=== PATIENT | female | born 1960 | race Caucasian/White ===

== ENCOUNTER 2016-12-30 04:15 | Inpatient (IN) | payer MEDICAID ==
[2016-12-30 05:12] VITALS: BP 110/58
[2016-12-30] MEDS ORDERED: Maalox 30 mL Cup PO PRN (06:31)
[2016-12-30] MEDS ORDERED: Magnesium Hydroxide (MOM) 30 mL UDC PO PRN (06:31)
[2016-12-30] MEDS ORDERED: Hydrocodone/APAP 10 mg/325 mg Tab PO PRN (06:31)
[2016-12-30] MEDS ORDERED: cefTRIAXone 1 GM in Sodium Chloride 0.9% 50 ML IV SCH (06:45)
[2016-12-30 08:01] LABS: HEMOGLOBIN 11.7 gm/dL (11.7-15.5); MEAN CELL VOLUME 89.3 fl (81-100); MEAN CORPUSCULAR HEMOGLOBIN 30.8 pg (27.0-31.0); MEAN CORPUSCULAR HGB CONC 34.5 pg (28.0-36.0); MEAN PLATELET VOLUME 7.9 fl; PLATELET COUNT 293 Th/cmm (150-400); RED BLOOD COUNT 3.81 Mil/cmm (3.80-5.10); RED CELL DISTRIBUTION WIDTH 12.2 % (11.5-20.0); WHITE BLOOD COUNT 5.9 Th/cmm (4.8-10.8)
[2016-12-30 08:25] LABS: ALB/GLOB RATIO 1.3 (1.0-1.8); ALKALINE PHOSPHATASE 51 U/L (34-104); ANION GAP 7.8 (7.0-16.0); BILIRUBIN,TOTAL 0.4 mg/dL (0.3-1.0); BUN - UREA NITROGEN 11 mg/dL (7-25); BUN/CREATININE RATIO 18.3; CALCIUM SERUM 9.1 mg/dL (8.6-10.3); CARBON DIOXIDE 29.3 mEq/L (21.0-31.0); CHLORIDE 104 mEq/L (98-107); CREATININE - SERUM 0.6 mg/dL (0.6-1.2); GLUCOSE 94 mg/dL (70-105); POTASSIUM SERUM 4.1 mEq/L (3.5-5.1); SGOT 14 U/L (13-39); SGPT/ALT 13 U/L (7-52); SODIUM SERUM 137 mEq/L (136-145)
[2016-12-30 09:09] LABS: EOSINOPHIL 2 % (0-5); NEUTROPHILS 47 % (40-80); PLATELET ESTIMATE ADEQUATE (NORMAL); TOTAL CELLS COUNTED 100
[2016-12-30] MEDS: Hydrocodone/APAP 5mg/325mg Tab PO PRN (10:22)
[2016-12-30] MEDS: cefTRIAXone 1 GM in 0.9% NS 50 ML IV SCH (11:32)
[2016-12-30] MEDS: Morphine Sulfate 4 mg/mL 1mL Syr IVP PRN (20:14)
--- NOTE | 2016-12-30 23:18 | History & Physical ---
HISTORY OF PRESENT ILLNESS: The patient was transferred from [facility]. The patient, in the ER, complained of dizziness. The patient is 56-year- old female who presents complaining of pain in the right arm for 1 day. The patient has chest pain and shortness of breath. The patient has an old compression fracture of the T-spine. The patient denies IV drug use. PAST MEDICAL HISTORY: Psychotic disorder. PAST SURGICAL HISTORY: . ALLERGIES: IV CONTRAST. MEDICATIONS: Benadryl. SOCIAL HISTORY: The patient denies alcohol or tobacco use. REVIEW OF SYSTEMS: See history of present illness. PHYSICAL EXAMINATION: GENERAL: The patient is awake, alert, nontoxic in appearance. VITAL SIGNS ON ADMISSION: Blood pressure in the ER was 124/76, pulse 109, temperature 98.5, respiratory rate 16, and O2 sat 96% on room air. HEENT: Normocephalic and atraumatic. Extraocular movements intact. NECK: Supple. No thyromegaly. No lymphadenopathy. RESPIRATORY: Clear. No rales or rhonchi. CARDIOVASCULAR: S1 and S2. GASTROINTESTINAL: Soft. +BS GENITOURINARY: No CVA tenderness. BACK: No tenderness. EXTREMITIES: Equal pulses bilaterally. SKIN: Tenderness in the right upper extremity. Positive erythema. NEUROLOGIC: Cranial nerves intact. sensation intact. EKG performed at [facility] which shows normal sinus rhythm. LABORATORY DATA: Labs on admission: Hematology: WBC 5.9, hemoglobin 8.7, hematocrit per labs, and platelet count of 293, 19% monocytes. Chemistry: Sodium 137, potassium 4.1, chloride 104, bicarbonate 7.8, BUN 11, creatinine 0.6, GFR is more than 60, glucose 94, calcium 9.1, total bilirubin 0.4, AST is 1413, alk phos 51, total protein 6.3, albumin 3.6, and globulin 2.7. IMPRESSION: 1. Right upper extremity cellulitis. 2. Hypoalbuminemia. 3. Psychotic disorder. 4. History of section. PLAN: The patient will be admitted to med-surg unit. We will obtain lab. Further recommendations per consult. JOB# [id number] [facility]
[2016-12-31] MEDS: Morphine Sulfate 2 mg/mL 1mL Syr IVP PRN ×2 (01:10→05:45)
--- NOTE | 2016-12-31 01:30 | Admit Criteria Form ---
Admit Criteria Forms - Admit Criteria Diagnosis: CELLULITIS Clinical Indications for Admission to Inpatient Care (Place 'X' for any and all applicable criteria): Admission is indicated for ANY ONE of the following(1)(2)(3)(4)(5): [ ]I. Limb-threatening infection [ ]II. High-risk comorbid condition as indicated by ANY ONE of the following: [ ]a) Uncontrolled diabetes (eg, HbA1c greater than 10% (0.1)) [ ]b) Cirrhosis [ ]c) Neutropenia [ ]d) Asplenia [ ]e) Immunosuppression [ ]f) Symptomatic heart failure [ ]III. Failure of outpatient therapy as indicated by ALL of the following: [ ]a) Progression or no improvement after adequate trial (minimum of 48 hours, with longer period for stable lower extremity infection) [ ]b) Adequate antibiotic regimen as indicated by use of ANY ONE of the following: [ ]i) First-generation cephalosporin (e.g., cephalexin) [ ]ii) Antistaphylococcal penicillin (e.g., dicloxacillin) [ ]iii) Penicillin-allergic patient regimen (clindamycin, extended-spectrum fluoroquinolone, or doxycycline) [ ]iv) Resistant organism (eg, methicillin-resistant Staphylococcus aureus) regimen (6) [ ]c) Outpatient intravenous therapy regimen is not appropriate due to ANY ONE of the following. (7)(8)(9)(10): [ ]i) It was tried and was not successful (eg, progression of infection). [ ]ii) It is not available or cannot be arranged in a clinically appropriate time frame (e.g., the next day). [ ]iii) Clinical presentation (eg, acuity of infection, rapidity of progression, confirmed or suspected bacteremia) is judged to require ALL of the following: [ ]1) Immediate initiation of intravenous therapy ( eg, cannot wait for next day) [ ]2) Intensity of patient monitoring and observation (eg, vital sign measurement, checks for infection progression) that cannot be provided at other than inpatient level of care [ ]IV. Mental status changes [ ]V. Bacteremia [ ]. Hemodynamic instability [ ]VII. Suspected necrotizing soft tissue infection (e.g., gas in tissue)(11)( 12) [ ]VIII. Orbital infection (13)(14) [ ]IX. Associated surgical procedure (e.g., abscess drainage, debridement) not amenable to outpatient, emergency department, or observation care [ ]X. Cutaneous gangrene [ ]XI. High fever (temperature greater than 39.5 degrees C (103.1 degrees F) (oral)) not responsive to outpatient, emergency department, or observation care therapy [X]XIII. Inpatient admission required rather than observation care (Also use Cellulitis: Observation Care as appropriate) because of ANY ONE of the following : [ ]a) Periorbital or perineal infection that is severe or worsening [X]b) Severe pain requiring acute inpatient management [ ]c) IV fluid to replace significant ongoing (e.g., for over 24 hours) losses (greater than 3L/m2 per day) [ ]d) Compartment syndrome monitoring (17) [ ]e) Strict or protective (eg, laminar flow) isolation [ ]f) Urgent debridement or skin grafting [ ]g) Bone or joint debridement [ ]h) Immediate inpatient surgery [ ]i) Other condition, treatment or monitoring requiring inpatient admission Extended stay beyond goal length of stay may be needed for (1)(18): [ ]a) Necrotizing soft tissue infection or fasciitis [ ]b) Gram-negative infection [ ]c) Methicillin-resistant Staphylococcal aureus (MRSA) infection [ ]d) Peripheral venous insufficiency with cellulitis [ ]e) Extensive edema [ ]f) Sepsis or continued Hemodynamic instability [ ]g) Continued high fever or mental status change [ ]h) Bacteremia [ ]i) Active serious comorbid conditions ( eg, heart failure, renal insufficiency) The original [email or web address] [email or web address] content created by [facility] [employer] has been revised. The portions of the content which have been revised are identified through the use of italic text or in bold, and [facility] has neither reviewed nor approved the modified material. All other unmodified content is copyright [facility] Please see references footnoted in the original [facility] edition 2016 Admit Criteria Met?: Yes
[2016-12-31 06:23] LABS: % BASOPHILS 0.5 % (0.0-2.0); % EOSINOPHILS 3.2 % (0.0-5.0); % MONOCYTES 10.8 % (2.0-10.0); % NEUTROPHILS 43.5 % (40.0-80.0); HEMATOCRIT 33.2 % (35.0-45.0); HEMOGLOBIN 11.5 gm/dL (11.7-15.5); MEAN CELL VOLUME 88.9 fl (81-100); MEAN CORPUSCULAR HEMOGLOBIN 30.8 pg (27.0-31.0); MEAN CORPUSCULAR HGB CONC 34.6 pg (28.0-36.0); MEAN PLATELET VOLUME 7.8 fl; NEUTROPHILE ABSOLUTE 2.6 Th/cmm (1.8-8.0); PLATELET COUNT 329 Th/cmm (150-400); RED BLOOD COUNT 3.73 Mil/cmm (3.80-5.10); RED CELL DISTRIBUTION WIDTH 12.3 % (11.5-20.0); WHITE BLOOD COUNT 5.8 Th/cmm (4.8-10.8)
[2016-12-31 06:33] LABS: BUN - UREA NITROGEN 12 mg/dL (7-25); CALCIUM SERUM 9.1 mg/dL (8.6-10.3); CHLORIDE 104 mEq/L (98-107); CREATININE - SERUM 0.6 mg/dL (0.6-1.2); GLUCOSE 97 mg/dL (70-105); SODIUM SERUM 137 mEq/L (136-145)
[2016-12-31] MEDS: Morphine Sulfate 4 mg/mL 1mL Syr IVP PRN ×5 (10:00→22:42)
[2016-12-31] MEDS: cefTRIAXone 1 GM in 0.9% NS 50 ML IV SCH (11:08)
--- NOTE | 2016-12-31 14:30 | Diagnostic Imaging Report ---
Carotid ultrasound HISTORY: Syncope COMPARISON: None Technique: Longitudinal and transverse sonographic sector images of the carotid arteries were obtained with doppler analysis. FINDINGS: Exam of the right side demonstrates intimal thickening and mild generalized atherosclerotic vascular disease. Exam of the left side demonstrates intimal thickening and mild generalized atherosclerotic vascular disease. The velocity and velocity ratios are within normal limits. Antegrade bilateral vertebral artery flow is demonstrated. IMPRESSION: Mild atherosclerotic vascular disease. No evidence of hemodynamically significant significant stenosis.
--- NOTE | 2016-12-31 22:18 | Consultation ---
PRIMARY CARE PHYSICIAN: Dr. Adams. This is a 56-year-old female who was brought to the Emergency with complaint of cellulitis of the right forearm. HISTORY OF PRESENT ILLNESS: The patient was at ER at [facility] and was found to have cellulitis, right arm. The patient was started on antibiotics, transferred to [facility]. Infectious consultation was called. The patient's past medical history, the patient states the patient was at some other hospital where IV was inserted in the right forearm, got infected and she developed large rash with pain and swelling suggestive of cellulitis and phlebitis. The patient was started on home medication. PAST MEDICAL HISTORY: Osteoporosis, syncope, fall, depression. FAMILY HISTORY: Brain tumor and hypertension present. PAST SURGICAL HISTORY: , cholecystectomy. SOCIAL HISTORY: The patient is an active smoker. REVIEW OF SYSTEMS: A 14-point review of systems negative except above. ALLERGIES: THE PATIENT IS ALLERGIC TO PAXIL, BENADRYL. PHYSICAL EXAMINATION: GENERAL: The patient is alert, awake, responsive. VITAL SIGNS: Temperature is 97.9, pulse 71, respirations 19, blood pressure 95/60. HEENT: Mild pallor, no icterus. Pupil reactive. NECK: Supple. LUNGS: Breath sounds bilateral vesicular. CARDIOVASCULAR: S1, S2. ABDOMEN: Soft, right forearm cellulitis present. LYMPHATIC: No thyromegaly, no cervical lymph nodes. DIAGNOSES: 1. Right forearm cellulitis. 2. Family history of hypertension, depression, syncope, fall, osteoporosis with fracture, thoracic spine. PLAN: The patient was started on Rocephin, repeat labs tomorrow. Supportive care, pain control, restart home medications, psych evaluation. Thank you, Dr. Adams, for this consultation. JOB# [id number]
[2017-01-01] MEDS: Morphine Sulfate 4 mg/mL 1mL Syr IVP PRN ×5 (03:05→22:29)
[2017-01-01] MEDS: cefTRIAXone 1 GM in 0.9% NS 50 ML IV SCH (12:29)
[2017-01-01 17:38] LABS: URINE BILIRUBIN NEGATIVE (NEGATIVE); URINE BLOOD NEGATIVE (NEGATIVE); URINE COLOR YELLOW; URINE GLUCOSE (UA) NEGATIVE (NEGATIVE); URINE KETONE NEGATIVE (NEGATIVE); URINE PROTEIN NEGATIVE (NEGATIVE); URINE UROBILINOGEN 0.2 E.U./dL (0.2 - 1.0)
[2017-01-01 17:39] LABS: URINE BACTERIA NONE SEEN /hpf (NONE SEEN); URINE EPITHELIAL CELLS NONE SEEN /lpf (FEW); URINE RBC NONE SEEN /hpf (0-5); URINE WBC NONE SEEN /hpf (0-5)
[2017-01-01] MEDS: Hydrocodone/APAP 5mg/325mg Tab PO PRN (20:32)
[2017-01-02] MEDS: Morphine Sulfate 2 mg/mL 1mL Syr IVP PRN ×5 (03:12→22:43)
[2017-01-02 08:00] LABS: % BASOPHILS 0.7 % (0.0-2.0); % EOSINOPHILS 2.5 % (0.0-5.0); % LYMPHOCYTES 40.7 % (20.0-50.0); % MONOCYTES 9.3 % (2.0-10.0); % NEUTROPHILS 46.8 % (40.0-80.0); HEMATOCRIT 34.1 % (35.0-45.0); HEMOGLOBIN 11.3 gm/dL (11.7-15.5); MEAN CELL VOLUME 89.1 fl (81-100); MEAN CORPUSCULAR HEMOGLOBIN 29.4 pg (27.0-31.0); MEAN PLATELET VOLUME 8.1 fl; PLATELET COUNT 357 Th/cmm (150-400); RED BLOOD COUNT 3.83 Mil/cmm (3.80-5.10); RED CELL DISTRIBUTION WIDTH 12.2 % (11.5-20.0); WHITE BLOOD COUNT 6.4 Th/cmm (4.8-10.8)
[2017-01-02 08:03] LABS: ANION GAP 6.1 (7.0-16.0); BUN - UREA NITROGEN 11 mg/dL (7-25); CALCIUM SERUM 9.3 mg/dL (8.6-10.3); CARBON DIOXIDE 29.9 mEq/L (21.0-31.0); CHLORIDE 105 mEq/L (98-107); CREATININE - SERUM 0.5 mg/dL (0.6-1.2); GLUCOSE 102 mg/dL (70-105); SODIUM SERUM 137 mEq/L (136-145)
[2017-01-02] MEDS: cefTRIAXone 1 GM in 0.9% NS 50 ML IV SCH (12:01)
--- NOTE | 2017-01-02 13:02 | Progress Notes ---
SUBJECTIVE: The patient is on IV antibiotics. The patient complains of generalized pain. OBJECTIVE: VITAL SIGNS: Temperature is 99, pulse 87, blood pressure 145/72, respiratory rate 18, saturation 98% on room air. CARDIOVASCULAR: S1, S2. LUNGS: Clear. ABDOMEN: Soft. Positive bowel sounds. LABORATORY DATA: Hematology: WBC 5.8, hemoglobin 11.5, hematocrit 33.2, platelet count 329. Chemistry, sodium 137, potassium 4.0, chloride 104, bicarb 29, anion gap 8, BUN 12, creatinine 0.6. GFR is more than 60. Glucose 97. Calcium 9.1. MICROBIOLOGY: No new microbiology results. ASSESSMENT: 1. Right upper extremity cellulitis. 2. Psychotic disorder. 3. History of . 4. chronic pain. PLAN: Continue current medication and treatment. Obtain labs in a.m. Await culture results. Further recommendations per consult. [facility]# [id number] MTDD
--- NOTE | 2017-01-02 13:22 | Progress Notes ---
SUBJECTIVE: The patient is awake and alert. The patient complains of headache and generalized pain. The patient is on IV antibiotics. The patient is on IV pain medications. OBJECTIVE: VITAL SIGNS: Temperature 97.8, pulse 81, blood pressure 122/78, respirations 18 and O2 sat 100% on room air. CARDIOVASCULAR: S1 and S2. RESPIRATIONS: Clear. ABDOMEN: Soft. Positive bowel sounds. LABORATORY DATA: No labs obtained. ASSESSMENT: 1. Right upper extremity cellulitis. 2. Psychotic disorder. 3. History of . 4. Intractable headache. 5. Chronic pain. PLAN: Continue current medication and treatment. Obtain labs in a.m. We will obtain Neurology consultation. Further recommendations per consult. JOB# [id number]
[2017-01-02] MEDS: Nicotine 21 mg/24 hr Tdm TD SCH (13:47)
--- NOTE | 2017-01-02 14:57 | Infectious Disease Prog Note ---
Infectious Disease Subjective - Review of Systems Service Date: 01/02/17 Subjective: cc cellulitis hpi- pt d/w pmd schedule for discharge po keflex x 7 daysas abobe ros no fever o/e vss chets claer abd soft cellulitis less dx celluluitis plan as above Infectious Disease Objective - Results Result Diagrams: 01/02/17 06:39 01/02/17 06:39 Recent Labs: Laboratory Last Values WBC 6.4 Th/cmm (4.8-10.8) 01/02/17 06:39 RBC 3.83 Mil/cmm (3.80-5.10) 01/02/17 06:39 Hgb 11.3 gm/dL (11.7-15.5) L 01/02/17 06:39 Hct 34.1 % (35.0-45.0) L 01/02/17 06:39 MCV 89.1 fl (81-100) 01/02/17 06:39 MCH 29.4 pg (27.0-31.0) 01/02/17 06:39 MCHC Differential 33.0 pg (28.0-36.0) 01/02/17 06:39 RDW 12.2 % (11.5-20.0) 01/02/17 06:39 Plt Count 357 Th/cmm (150-400) 01/02/17 06:39 MPV 8.1 fl 01/02/17 06:39 Neutrophils % 46.8 % (40.0-80.0) 01/02/17 06:39 Lymphocytes % 40.7 % (20.0-50.0) 01/02/17 06:39 Monocytes % 9.3 % (2.0-10.0) 01/02/17 06:39 Eosinophils % 2.5 % (0.0-5.0) 01/02/17 06:39 Basophils % 0.7 % (0.0-2.0) 01/02/17 06:39 Neutrophils (Manual) 47 % (40-80) 12/30/16 07:40 Lymphocytes 32 % (20-50) 12/30/16 07:40 Monocytes 19 % (2-10) H 12/30/16 07:40 Eosinophils 2 % (0-5) 12/30/16 07:40 Platelet Estimate ADEQUATE (NORMAL) 12/30/16 07:40 RBC Morph Micro Appear NORMAL (NORMAL) 12/30/16 07:40 ESR 33 mm/hr (0-30) H 12/30/16 07:40 Sodium 137 mEq/L (136-145) 01/02/17 06:39 Potassium 4.0 mEq/L (3.5-5.1) 01/02/17 06:39 Chloride 105 mEq/L (98-107) 01/02/17 06:39 Carbon Dioxide 29.9 mEq/L (21.0-31.0) 01/02/17 06:39 Anion Gap 6.1 (7.0-16.0) L 01/02/17 06:39 BUN 11 mg/dL (7-25) 01/02/17 06:39 Creatinine 0.5 mg/dL (0.6-1.2) L 01/02/17 06:39 Est GFR ( Amer) > 60.0 ml/min (>90) 01/02/17 06:39 Est GFR (Non-Af Amer) > 60.0 ml/min 01/02/17 06:39 BUN/Creatinine Ratio 22.0 01/02/17 06:39 Glucose 102 mg/dL (70-105) 01/02/17 06:39 Calcium 9.3 mg/dL (8.6-10.3) 01/02/17 06:39 Total Bilirubin 0.4 mg/dL (0.3-1.0) 12/30/16 07:40 AST 14 U/L (13-39) 12/30/16 07:40 ALT 13 U/L (7-52) 12/30/16 07:40 Alkaline Phosphatase 51 U/L (34-104) 12/30/16 07:40 C-Reactive Protein 10.0 mg/dL (0.0-0.9) H 12/30/16 07:40 Total Protein 6.3 gm/dL (6.0-8.3) 12/30/16 07:40 Albumin 3.6 gm/dL (3.7-5.3) L 12/30/16 07:40 Globulin 2.7 gm/dL 12/30/16 07:40 Albumin/Globulin Ratio 1.3 (1.0-1.8) 12/30/16 07:40 Urine Source CLEAN C 01/01/17 17:00 Urine Color YELLOW 01/01/17 17:00 Urine Clarity CLEAR (CLEAR) 01/01/17 17:00 Urine pH 7.0 01/01/17 17:00 Ur Specific [place] 1.020 (1.005-1.030) 01/01/17 17:00 Urine Protein NEGATIVE mg/dL (NEGATIVE) 01/01/17 17:00 Urine Glucose (UA) NEGATIVE mg/dL (NEGATIVE) 01/01/17 17:00 Urine Ketones NEGATIVE mg/dL (NEGATIVE) 01/01/17 17:00 Urine Blood NEGATIVE (NEGATIVE) 01/01/17 17:00 Urine Nitrate NEGATIVE (NEGATIVE) 01/01/17 17:00 Urine Bilirubin NEGATIVE (NEGATIVE) 01/01/17 17:00 Urine Urobilinogen 0.2 E.U./dL (0.2 - 1.0) 01/01/17 17:00 Ur Leukocyte Esterase NEGATIVE (NEGATIVE) 01/01/17 17:00 Urine RBC NONE SEEN /hpf (0-5) 01/01/17 17:00 Urine WBC NONE SEEN /hpf (0-5) 01/01/17 17:00 Ur Epithelial Cells NONE SEEN /lpf (FEW) 01/01/17 17:00 Urine Bacteria NONE SEEN /hpf (NONE SEEN) 01/01/17 17:00 Vancomycin Trough 14.8 ug/mL (10-20) 01/02/17 13:00 - Physical Exam Vitals and I&O: Vital Signs Temp 98.4 F 01/02/17 12:00 Pulse 84 01/02/17 12:00 Resp 18 01/02/17 12:00 BP 117/71 01/02/17 12:00 Pulse Ox 99 01/02/17 12:00 Intake & Output 01/01/17 01/02/17 01/02/17 18:59 06:59 18:59 Intake Total 550 250 Balance 550 250 Intake: Intake, IV Amount 550 250 Vancomycin HCl 1 gm In 500 250 Sodium Chloride 0.9% 250 ml @ 165 mls/hr IV Q12H [facility] Rx#:[id number] cefTRIAXone 1 gm In 50 Sodium Chloride 0.9% 50 ml @ 100 mls/hr IV Q24HR [facility] Rx#:[id number] Active Medications: Current Medications Acetaminophen (Tylenol) 650 mg PO Q6H PRN PRN Reason: Mild Pain/Headache/T above 101 Stop: 02/28/17 06:30 Acetaminophen/Hydrocodone Bitart ([place] 10 Mg/325 Mg) 1 tab PO Q6H PRN PRN Reason: Pain (Severe) Stop: 02/28/17 06:30 Last Admin: 12/30/16 17:17 Dose: 1 tab Acetaminophen/Hydrocodone Bitart ([place] 5mg/325mg) 1 tab PO Q6H PRN PRN Reason: Moderate Pain Stop: 02/28/17 06:30 Last Admin: 01/01/17 20:32 Dose: 1 tab Al Hydrox/Mg Hydrox/Simethicone (Maalox) 30 ml PO Q6H PRN PRN Reason: Heartburn Stop: 02/28/17 06:30 Gabapentin (Neurontin) 300 mg PO TID [facility] Stop: 02/28/17 20:59 Last Admin: 01/02/17 13:46 Dose: 300 mg Ceftriaxone Sodium 1 gm/ (Sodium Chloride) 50 mls @ 100 mls/hr IV Q24HR [facility] Stop: 02/28/17 10:59 Last Admin: 01/02/17 12:01 Dose: 100 mls/hr Vancomycin HCl 1 gm/ Sodium (Chloride) 250 mls @ 165 mls/hr IV Q12H [facility] Stop: 03/01/17 13:59 Last Admin: 01/02/17 14:03 Dose: 165 mls/hr Lorazepam (Ativan) 1 mg PO Q6H PRN; Protocol PRN Reason: Anxiety/Agitation Stop: 02/28/17 06:30 Last Admin: 01/02/17 13:54 Dose: 1 mg Magnesium Hydroxide (Milk Of Magnesia) 30 ml PO HS PRN PRN Reason: Constipation Stop: 02/28/17 06:30 Miscellaneous (Vancomycin Iv Per Pharmacy) 1 ea MC PRN [facility] Stop: 03/01/17 12:14 Morphine Sulfate (Morphine) 2 mg IVP Q4HR PRN PRN Reason: Pain (Moderate) Stop: 02/28/17 18:22 Last Admin: 01/02/17 14:03 Dose: 2 mg Morphine Sulfate (Morphine) 4 mg IVP Q4H PRN PRN Reason: Pain (Severe) Stop: 02/28/17 18:23 Last Admin: 01/01/17 22:29 Dose: 4 mg Nicotine (Nicotine Transdermal System) 21 mg TD DAILY [facility] Stop: 03/03/17 11:59 Last Admin: 01/02/17 13:47 Dose: Not Given Ondansetron HCl (Zofran Odt) 4 mg PO Q6H PRN PRN Reason: Nausea / Vomiting Stop: 02/28/17 06:30 Last Admin: 01/01/17 23:31 Dose: 4 mg Sodium Chloride (Saline Flush) 10 ml IV QSHIFT [facility] Stop: 02/28/17 07:59 Last Admin: 01/02/17 08:44 Dose: 10 ml Temazepam (Restoril) 15 mg PO HS PRN; Protocol PRN Reason: Insomnia Stop: 02/28/17 06:36 Last Admin: 01/01/17 23:33 Dose: 15 mg
--- NOTE | 2017-01-02 18:39 | Cardiology ---
ECHOCARDIOGRAM REFERRING PHYSICIAN: Edmund Adams MD M-MODE MEASUREMENTS: Aortic root dimension end-diastole is 2.8 cm. Aortic valve systolic separation is 2.0 cm. Left atrial dimension end systole is 2.9 cm. Mitral valve EP septal separation is 0.35 cm. Mitral estrella EA ratio is 1.1. LV dimension end diastole is 0.5 cm and end-systole is 3.0 cm with ejection fraction between 60% and 65%. Intraventricular septal thickness in end diastole is 1.3 and LV posterior wall thickness in end diastole is 1.1 cm. Doppler and carotid Doppler measurements are as follows: The mitral valve VMax is 3.12 m/sec. Tricuspid valve VMax is 2.0 m/sec. Aortic valve VMax is 1.1 mmHg. Aortic valve pressure gradient is 4.8 mmHg. Aortic valve area is 2.86 cm2. Right ventricular systolic pressure is 26 mmHg. The Doppler and carotid Doppler show there is mild TR and trivial MR present without any hemodynamic significance. M-mode and 2D shows LV dimension and second wall motion are normal. No pericardial effusion present. Aortic valve is calcified with normal function in end diastole as well as end systole. Mitral valve annulus is calcified with slightly thickened mitral valve leaflets. Other valves are normal in thickness and motion in end diastole as well as end systole. All the chambers are normal in dimension. CONCLUSION: 1. LV dimension and second wall motion are normal with ejection fraction between 60% and 65%. 2. Asymmetrical interventricular septal thickens. 3. Calcified aortic valve without stenosis. 4. Mitral valve annulus is calcified with thickened mitral valve leaflets without any hemodynamic changes in end diastole as well as end systole. 5. Mild tricuspid regurgitation present. 6. Slightly elevated pulmonary arterial pressure to borderline pulmonary hypertension. 7. Mild tricuspid regurgitation without any hemodynamic significance. 4. Otherwise normal study for the age. JOB# [id number] [facility]
--- NOTE | 2017-01-03 02:51 | Consultation ---
HISTORY OF PRESENT ILLNESS: The patient is a 56-year-old, had been taken to [facility] complained of dizziness, of passing out and weakness. The patient also complained of right arm pain. The patient has been managed for that. PAST MEDICAL HISTORY: Includes psychiatric illness. PAST SURGICAL HISTORY: . MEDICATIONS: Benadryl. SOCIAL HISTORY: Does not smoke or drink. REVIEW OF SYSTEMS: The patient is weak and somewhat lethargic. She will answer questions. She has some facial weakness, left side. She feels that she is weak on the left arm. She says that she is also weak in the legs, not been able to get up. MEDICATIONS: As per reconciliation. PHYSICAL EXAMINATION: VITAL SIGNS: Temperature 98.2, blood pressure 130/74, pulse is around about 96. NECK: Supple. No bruits. HEART: Sounds S1, S2. LUNGS: Clear. ABDOMEN: Soft. NEUROLOGIC: The patient is awake and alert. She will answer questions. Speech is mildly dysarthric. No visual field defect. The patient has a left facial droop. ____ she lifts both arms up but definite drift on the left side. Less movement on the left and radius grinder is less in the left. Legs: The patient has somewhat increased tone on both legs. The patient lifts legs up, but weak. It is around about only 3 to 3+. REFLEXES: A 1+ upper extremity. Knees are about 3 or so. Ankles 1+ bilateral Babinski. IMPRESSION: 1. Loss of consciousness, syncope. 2. Dizziness. 3. Possible stroke with left-sided weakness. 4. Paraplegia myelopathy. 5. History of psychiatric illness. MANAGEMENT: The patient at this time MRI of brain. We will go ahead and do an MRI cervical spine, lab studies. JOB# [id number]
[2017-01-03] MEDS: Morphine Sulfate 2 mg/mL 1mL Syr IVP PRN ×3 (03:27→13:25)
--- NOTE | 2017-01-03 04:16 | Progress Notes ---
SUBJECTIVE: The patient is awake and alert. The patient has headache. The patient has been evaluated by Neurology. The patient is on IV antibiotics. The patient is awaiting evaluation by Cardiology and Psychiatry. The patient is ordered for MRI of brain and cervical spine by Neurology. OBJECTIVE: VITAL SIGNS: Temperature 97.9, pulse 83, blood pressure per nursing, respiratory rate 18, and saturation 100% on room air. CARDIOVASCULAR: S1 and S2. RESPIRATORY: Clear. GASTROINTESTINAL: Soft. Positive bowel sounds. LABORATORY DATA: Hematology: WBC is 6.4; hemoglobin 11.3; hematocrit per labs; platelet count 57,000; no left shift noted. Chemistry: Sodium 137, potassium 4.0, chloride 105, bicarb 29, anion gap 6.1, BUN 11, creatinine per labs, GFR is more than 60, glucose is 102, calcium 9.3. Microbiology: No new microbiology results. ASSESSMENT: 1. Sepsis cellulitis. 2. Psychiatric disorder. 3. History of section. 4. Intractable headache. 5. Chronic pain. 6. Anemia. 7. History of tobacco abuse. PLAN: Continue current medication and treatment. Obtain labs in a.m. Awaiting MRI of brain and cervical spine results. Further per consults. heavy equipment rental manager for discharge planning. JOB# [id number] JESSICA
[2017-01-03 07:15] LABS: % BASOPHILS 0.7 % (0.0-2.0); % EOSINOPHILS 2.6 % (0.0-5.0); % LYMPHOCYTES 42.1 % (20.0-50.0); % NEUTROPHILS 46.6 % (40.0-80.0); HEMOGLOBIN 11.2 gm/dL (11.7-15.5); MEAN CORPUSCULAR HEMOGLOBIN 30.1 pg (27.0-31.0); MEAN CORPUSCULAR HGB CONC 33.8 pg (28.0-36.0); MEAN PLATELET VOLUME 7.8 fl; NEUTROPHILE ABSOLUTE 3.1 Th/cmm (1.8-8.0); PLATELET COUNT 347 Th/cmm (150-400); RED CELL DISTRIBUTION WIDTH 11.9 % (11.5-20.0); WHITE BLOOD COUNT 6.5 Th/cmm (4.8-10.8)
[2017-01-03 07:39] LABS: ANION GAP 11.4 (7.0-16.0); BUN - UREA NITROGEN 9 mg/dL (7-25); CALCIUM SERUM 9.2 mg/dL (8.6-10.3); CARBON DIOXIDE 29.6 mEq/L (21.0-31.0); CHLORIDE 104 mEq/L (98-107); CREATININE - SERUM 0.5 mg/dL (0.6-1.2); GLUCOSE 93 mg/dL (70-105); SODIUM SERUM 141 mEq/L (136-145)
[2017-01-03] MEDS: Nicotine 21 mg/24 hr Tdm TD SCH (08:01)
[2017-01-03] MEDS: cefTRIAXone 1 GM in 0.9% NS 50 ML IV SCH (13:31)
--- NOTE | 2017-01-03 17:41 | Infectious Disease Prog Note ---
Infectious Disease Subjective - Review of Systems Service Date: 01/03/17 Subjective: cc cellulitis hpi- pt pmd schedule for discharge po keflex x 7 daysas abobe will stop iv bax ros no fever o/e vss chets claer abd soft cellulitis less dx celluluitis plan as above Infectious Disease Objective - Results Result Diagrams: 01/03/17 06:40 01/03/17 06:40 Recent Labs: Laboratory Last Values WBC 6.5 Th/cmm (4.8-10.8) 01/03/17 06:40 RBC 3.70 Mil/cmm (3.80-5.10) L 01/03/17 06:40 Hgb 11.2 gm/dL (11.7-15.5) L 01/03/17 06:40 Hct 33.0 % (35.0-45.0) L 01/03/17 06:40 MCV 89.0 fl (81-100) 01/03/17 06:40 MCH 30.1 pg (27.0-31.0) 01/03/17 06:40 MCHC Differential 33.8 pg (28.0-36.0) 01/03/17 06:40 RDW 11.9 % (11.5-20.0) 01/03/17 06:40 Plt Count 347 Th/cmm (150-400) 01/03/17 06:40 MPV 7.8 fl 01/03/17 06:40 Neutrophils % 46.6 % (40.0-80.0) 01/03/17 06:40 Lymphocytes % 42.1 % (20.0-50.0) 01/03/17 06:40 Monocytes % 8.0 % (2.0-10.0) 01/03/17 06:40 Eosinophils % 2.6 % (0.0-5.0) 01/03/17 06:40 Basophils % 0.7 % (0.0-2.0) 01/03/17 06:40 Neutrophils (Manual) 47 % (40-80) 12/30/16 07:40 Lymphocytes 32 % (20-50) 12/30/16 07:40 Monocytes 19 % (2-10) H 12/30/16 07:40 Eosinophils 2 % (0-5) 12/30/16 07:40 Platelet Estimate ADEQUATE (NORMAL) 12/30/16 07:40 RBC Morph Micro Appear NORMAL (NORMAL) 12/30/16 07:40 ESR 41 mm/hr (0-30) H 01/03/17 06:40 Sodium 141 mEq/L (136-145) 01/03/17 06:40 Potassium 4.0 mEq/L (3.5-5.1) 01/03/17 06:40 Chloride 104 mEq/L (98-107) 01/03/17 06:40 Carbon Dioxide 29.6 mEq/L (21.0-31.0) 01/03/17 06:40 Anion Gap 11.4 (7.0-16.0) 01/03/17 06:40 BUN 9 mg/dL (7-25) 01/03/17 06:40 Creatinine 0.5 mg/dL (0.6-1.2) L 01/03/17 06:40 Est GFR ( Amer) > 60.0 ml/min (>90) 01/03/17 06:40 Est GFR (Non-Af Amer) > 60.0 ml/min 01/03/17 06:40 BUN/Creatinine Ratio 18.0 01/03/17 06:40 Glucose 93 mg/dL (70-105) 01/03/17 06:40 Calcium 9.2 mg/dL (8.6-10.3) 01/03/17 06:40 Total Bilirubin 0.4 mg/dL (0.3-1.0) 12/30/16 07:40 AST 14 U/L (13-39) 12/30/16 07:40 ALT 13 U/L (7-52) 12/30/16 07:40 Alkaline Phosphatase 51 U/L (34-104) 12/30/16 07:40 C-Reactive Protein 1.0 mg/dL (0.0-0.9) H 01/03/17 06:40 Total Protein 6.3 gm/dL (6.0-8.3) 12/30/16 07:40 Albumin 3.6 gm/dL (3.7-5.3) L 12/30/16 07:40 Globulin 2.7 gm/dL 12/30/16 07:40 Albumin/Globulin Ratio 1.3 (1.0-1.8) 12/30/16 07:40 Urine Source CLEAN C 01/01/17 17:00 Urine Color YELLOW 01/01/17 17:00 Urine Clarity CLEAR (CLEAR) 01/01/17 17:00 Urine pH 7.0 01/01/17 17:00 Ur Specific [place] 1.020 (1.005-1.030) 01/01/17 17:00 Urine Protein NEGATIVE mg/dL (NEGATIVE) 01/01/17 17:00 Urine Glucose (UA) NEGATIVE mg/dL (NEGATIVE) 01/01/17 17:00 Urine Ketones NEGATIVE mg/dL (NEGATIVE) 01/01/17 17:00 Urine Blood NEGATIVE (NEGATIVE) 01/01/17 17:00 Urine Nitrate NEGATIVE (NEGATIVE) 01/01/17 17:00 Urine Bilirubin NEGATIVE (NEGATIVE) 01/01/17 17:00 Urine Urobilinogen 0.2 E.U./dL (0.2 - 1.0) 01/01/17 17:00 Ur Leukocyte Esterase NEGATIVE (NEGATIVE) 01/01/17 17:00 Urine RBC NONE SEEN /hpf (0-5) 01/01/17 17:00 Urine WBC NONE SEEN /hpf (0-5) 01/01/17 17:00 Ur Epithelial Cells NONE SEEN /lpf (FEW) 01/01/17 17:00 Urine Bacteria NONE SEEN /hpf (NONE SEEN) 01/01/17 17:00 Vancomycin Trough 14.8 ug/mL (10-20) 01/02/17 13:00 - Physical Exam Vitals and I&O: Vital Signs Temp 99 F 01/03/17 16:00 Pulse 77 01/03/17 16:00 Resp 18 01/03/17 16:00 BP 110/86 01/03/17 16:00 Pulse Ox 97 01/03/17 16:00 Intake & Output 01/02/17 01/03/17 01/03/17 18:59 06:59 18:59 Intake Total 660 300 150 Balance 660 300 150 Intake: Intake, IV Amount 300 Vancomycin HCl 1 gm In 250 Sodium Chloride 0.9% 250 ml @ 165 mls/hr IV Q12H [facility] Rx#:[id number] cefTRIAXone 1 gm In 50 Sodium Chloride 0.9% 50 ml @ 100 mls/hr IV Q24HR [facility] Rx#:[id number] Oral 360 300 150 Other: # Voids 2 3 Active Medications: Current Medications Acetaminophen (Tylenol) 650 mg PO Q6H PRN PRN Reason: Mild Pain/Headache/T above 101 Stop: 02/28/17 06:30 Acetaminophen/Hydrocodone Bitart ([place] 10 Mg/325 Mg) 1 tab PO Q6H PRN PRN Reason: Pain (Severe) Stop: 02/28/17 06:30 Last Admin: 12/30/16 17:17 Dose: 1 tab Acetaminophen/Hydrocodone Bitart ([place] 5mg/325mg) 1 tab PO Q6H PRN PRN Reason: Moderate Pain Stop: 02/28/17 06:30 Last Admin: 01/01/17 20:32 Dose: 1 tab Al Hydrox/Mg Hydrox/Simethicone (Maalox) 30 ml PO Q6H PRN PRN Reason: Heartburn Stop: 02/28/17 06:30 Gabapentin (Neurontin) 300 mg PO TID [facility] Stop: 02/28/17 20:59 Last Admin: 01/03/17 13:25 Dose: 300 mg Ceftriaxone Sodium 1 gm/ (Sodium Chloride) 50 mls @ 100 mls/hr IV Q24HR [facility] Stop: 02/28/17 10:59 Last Admin: 01/03/17 13:31 Dose: 100 mls/hr Vancomycin HCl 1 gm/ Sodium (Chloride) 250 mls @ 165 mls/hr IV Q12H [facility] Stop: 03/01/17 13:59 Last Admin: 01/03/17 02:40 Dose: 165 mls/hr Lorazepam (Ativan) 1 mg PO Q6H PRN; Protocol PRN Reason: Anxiety/Agitation Stop: 02/28/17 06:30 Last Admin: 01/03/17 08:02 Dose: 1 mg Magnesium Hydroxide (Milk Of Magnesia) 30 ml PO HS PRN PRN Reason: Constipation Stop: 02/28/17 06:30 Miscellaneous (Vancomycin Iv Per Pharmacy) 1 ea MC PRN [facility] Stop: 03/01/17 12:14 Morphine Sulfate (Morphine) 2 mg IVP Q4HR PRN PRN Reason: Pain (Moderate) Stop: 02/28/17 18:22 Last Admin: 01/03/17 13:25 Dose: 2 mg Morphine Sulfate (Morphine) 4 mg IVP Q4H PRN PRN Reason: Pain (Severe) Stop: 02/28/17 18:23 Last Admin: 01/01/17 22:29 Dose: 4 mg Nicotine (Nicotine Transdermal System) 21 mg TD DAILY [facility] Stop: 03/03/17 11:59 Last Admin: 01/03/17 08:01 Dose: 21 mg Ondansetron HCl (Zofran Odt) 4 mg PO Q6H PRN PRN Reason: Nausea / Vomiting Stop: 02/28/17 06:30 Last Admin: 01/01/17 23:31 Dose: 4 mg Sodium Chloride (Saline Flush) 10 ml IV QSHIFT [facility] Stop: 02/28/17 07:59 Last Admin: 01/02/17 21:54 Dose: 10 ml Temazepam (Restoril) 15 mg PO HS PRN; Protocol PRN Reason: Insomnia Stop: 02/28/17 06:36 Last Admin: 01/02/17 22:51 Dose: 15 mg
--- NOTE | 2017-01-03 20:45 | Discharge Summary ---
DATE OF DISCHARGE: 01/03/2017 DISCHARGE DIAGNOSES: 1. The patient has right extremity cellulitis. 2. Psychotic disorder. 3. History of . 4. Intractable headache. 5. Chronic pain. 6. Dizziness. 7. Myelopathy. 8. Syncope. The patient was admitted to [facility] Med[facility]. Consultation obtained from Infectious Disease, Dr. Mayra Langford, Cardiology consultation obtained from Dr. Belén Adams and Neurology consultation obtained from Dr. Grayson. Per recommendation from infectious disease, the patient was placed on IV antibiotic coverage with Rocephin. The patient also was ordered for vancomycin. The patient responded well to IV antibiotics. For workup of the patient's syncope and dizziness, the patient had carotid artery ultrasound done, which showed mild atherosclerotic vascular disease, no evidence of any significant stenosis. Per evaluation by Neurology, the patient had syncope, dizziness, possible stroke, left-sided weakness, myelopathy and psychiatric illness. The patient was recommended for MRI of brain and MRA of the cervical spine. The patient had an echocardiogram done that showed left ventricular dimension and wall motion are normal, ejection fraction of 65%. Calcified aortic valve without stenosis, mitral valve is calcified, mild tricuspid regurgitation, slightly elevated pulmonary artery pressure, mild tricuspid regurgitation. Note from [facility], the patient has been previously admitted to [facility] and [facility] for syncope and possible loss of consciousness. MRI results have been negative. The patient was found to have old compression fractures of the thoracic spine. Per discussion with Infectious Disease recommendation, the patient will be discharged home on Keflex. supermarket manager will arrange for transfer the patient back to the patient's home. The patient will follow up with PMD, PCP as outpatient. JOB# [id number] JESSICA
--- NOTE | 2017-01-04 01:56 | Consultation ---
DATE OF CONSULTATION: 01/03/2017 The patient was seen on 01/03/2017. She was admitted on 12/30/2016. IDENTIFYING INFORMATION: The patient is a 56-year-old female as a consult. I was asked to see this patient with history of psychotic illness; however, when I talked to the patient, she reported that she does not have any issues that she needs to see a psychiatrist for. She reports she is not just depressed or anxious, just frustrated with what is happening. Apparently, she came in because of dizziness, syncope attack, numbness in her extremities, and she was seen by Dr. John Grayson and apparently she is being worked up for CVA. The patient currently reports she sleeps well, eats well. She denies any current intent to harm herself or anybody. She denies any hallucinations or paranoia. She was able to tell me the date. PAST PSYCHIATRIC HISTORY: The patient denies prior psychiatric treatment. Denies substance abuse. MEDICAL HISTORY: Deferred to Dr. Grayson. FAMILY AND SOCIAL HISTORY: The patient reports that she has one son that she keeps relation with him, but she does not know his phone number. He lives in [place]. 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 MENTAL STATUS EXAMINATION: The patient is appropriately dressed, although she has been dressed in hospital gown. She was alert, oriented to person, time, and date. She has full range of affect. The patient reports no suicidal ideation, no homicidal ideation, and no paranoia. She denies any intent to harm herself or anybody. She seems to have average intelligence. Her insight and judgment seem to be fair. Her memory is fair. IMPRESSION: AXIS I: Depression, not otherwise specified. MEDICAL DIAGNOSES: Refer to the medical doctor. I would ____ the patient does not want to be on medications. She feels that she has no issues whatever is happening now is because of her possible severe ache. She is concerned for herself, however, she needs to be on medication, let me know. She needs to follow up with the psychiatrist upon discharge. Thank you very much for allowing me to participate in the care of this most interesting lady. JOB# [id number]
--- NOTE | 2017-01-04 05:38 | Progress Notes ---
DATE: 01/03/2017 SUBJECTIVE: The patient is asleep. Per nursing staff, no reports of any acute complaints. OBJECTIVE: VITAL SIGNS: Temperature 98.7, pulse 71, blood pressure per nursing, respiratory rate 18, and O2 sat is 98% on room air. CARDIOVASCULAR: S1 and S2. RESPIRATORY: Clear. GASTROINTESTINAL: Soft. Positive bowel sounds. LABORATORY DATA: Hematology: WBC 6.5, hemoglobin 11.2, hematocrit 33.0, platelet count of 347,000. ESR is 41. Chemistry: Sodium 141, potassium 4.0, chloride 104, bicarb 29, anion gap 11, BUN 9, creatinine 0.5. GFR is more than 60. Glucose is 93. Calcium is 9.2. Microbiology: No new microbiology results. ASSESSMENT: 1. Right upper extremity cellulitis. 2. Psychotic disorder. 3. History of section. 4. Intractable headache. 5. Chronic pain. 6. Syncope. 7. Dizziness. 8. Rule out cerebrovascular accident. 9. Possible paraplegia myelopathy. PLAN: Continue current medication and treatment. Obtain labs in a.m. The patient will require outpatient MRI of brain and C-spine for rule out CVA and myelopathy. The patient had previous workup for her syncope at [facility], [facility] and [facility]. JOB# [id number] JESSICA
[2017-01-04 12:20] LABS: FOLIC ACID 13.6 ng/mL (>3.0)
== END 2017-01-03 18:00 | disposition home or self-care (01) | DRG 720 ==
LOC: MSI 04:15
PROVIDERS: ADMIT Preventive Medicine Preventive Medicine/Occupational Environmental Medicine; ATTEND Preventive Medicine Preventive Medicine/Occupational Environmental Medicine
DX: A41.9 Sepsis, unspecified organism (principal); G82.20 Paraplegia, unspecified; E88.09 Other disorders of plasma-protein metabolism, not elsewhere classified; G95.9 Disease of spinal cord, unspecified; I08.2 Rheumatic disorders of both aortic and tricuspid valves; L03.113 Cellulitis of right upper limb; F29 Unspecified psychosis not due to a substance or known physiological condition; D64.9 Anemia, unspecified; R07.9 Chest pain, unspecified; G89.29 Other chronic pain; R51 Headache; F32.9 Major depressive disorder, single episode, unspecified; I70.90 Unspecified atherosclerosis; Z87.891 Personal history of nicotine dependence; Z88.8 Allergy status to other drugs, medicaments and biological substances; Z82.49 Family history of ischemic heart disease and other diseases of the circulatory system; Z81.8 Family history of other mental and behavioral disorders
CPT/HCPCS: 36415-UA; 80048-TC; 80053-TC; 80202-TC; 81001-TC; 82607-90; 82746-90; 85007-TC; 85025-TC; 85027-TC; 85652-TC; 86141-TC; 93880-TC; J0696; J2270; J3370; Q0162; X3904